=== PATIENT | male | born 1965 ===

== ENCOUNTER → 2019-12-21 10:40 | Outpatient (CLI) | payer OTHER ==
[~2019-12-21 10:40] MED LIST: CIPRO500 MG PO; FLAGYL500MG PO; FLONASE16 GM NS; INTESTINEX680 MG PO; ZANTAC150 MG PO; ZYRTEC10 MG PO
== END | disposition home or self-care (01) ==
LOC: LAB 10:40
PROVIDERS: ATTEND Internal Medicine Cardiovascular Disease
DX: N40.0 Benign prostatic hyperplasia without lower urinary tract symptoms (principal); E11.9 Type 2 diabetes mellitus without complications; I10 Essential (primary) hypertension; E78.2 Mixed hyperlipidemia; E55.9 Vitamin D deficiency, unspecified; D68.8 Other specified coagulation defects; E03.8 Other specified hypothyroidism

== ENCOUNTER 2019-12-27 10:10 | Outpatient (CLI) | payer OTHER | END 2019-12-27 10:25 | disposition home or self-care (01) | LOC: NUCLEAR 10:10 | PROVIDERS: ATTEND Internal Medicine Cardiovascular Disease | DX: I87.2 Venous insufficiency (chronic) (peripheral) (principal) ==

== ENCOUNTER 2020-08-08 18:01 | Outpatient (CLI) | payer OTHER | END 2020-08-08 18:11 | disposition home or self-care (01) | LOC: LAB 18:01 | PROVIDERS: ATTEND Surgery | DX: U07.1 COVID-19 (principal); Z20.828 Contact with and (suspected) exposure to other viral communicable diseases ==

== ENCOUNTER 2020-10-14 08:00 | Outpatient (CLI) | payer OTHER | END 2020-10-14 08:30 | disposition home or self-care (01) | LOC: PPH VACUNA 08:00 | DX: Z23 Encounter for immunization (principal) ==

== ENCOUNTER 2020-11-03 08:00 | Outpatient (CLI) | payer OTHER | END 2020-11-03 08:30 | disposition home or self-care (01) | LOC: PPH VACUNA 08:00 | DX: Z23 Encounter for immunization (principal) ==

== ENCOUNTER 2021-01-12 08:13 | Outpatient (CLI) | payer OTHER | END 2021-01-12 08:20 | disposition home or self-care (01) | LOC: LAB 08:13 | PROVIDERS: ATTEND Emergency Medicine Pediatric Emergency Medicine | DX: Z03.818 Encounter for observation for suspected exposure to other biological agents ruled out (principal) ==

== ENCOUNTER 2021-04-16 08:00 | Outpatient (CLI) | payer OTHER | END 2021-04-16 08:30 | disposition home or self-care (01) | LOC: PPH VACUNA 08:00 | PROVIDERS: ATTEND Emergency Medicine Pediatric Emergency Medicine | DX: Z23 Encounter for immunization (principal) ==